=== PATIENT | male | born 1985 | race African-American/Black ===

== ENCOUNTER 2024-01-25 06:39 | Emergency (ER) | payer MEDICAID ==
[~2024-01-25] VITALS: Ht 193 cm; Wt 96.2 kg
[2024-01-25 07:03] VITALS: BP 122/64; TEMP 97.7
[2024-01-25 08:00] VITALS: O2SAT 99
[2024-01-25] MEDS ORDERED: CLOT15CR35 TP (09:56)
== END 2024-01-25 10:09 | disposition home or self-care (01) ==
LOC: ER 06:49
DX: B35.3 Tinea pedis (principal); B35.1 Tinea unguium; Z59.00 Homelessness unspecified
CPT/HCPCS: 73630-TC